=== PATIENT | male | born 1950 | race Caucasian/White ===

== ENCOUNTER → 2021-05-17 | Outpatient (CLI) | payer BC ==
[~2021-05-17] MED LIST: ASPI81TA26 PO; EPIP0.3I2 IM; EZET10TA21 PO; LORA-243 PO; MELO15TA28 PO; MONT10TA10 PO; OMEP1CAP73 PO; ROSU40TA4 PO; TRAZ-189 PO
== END ==
LOC: M LABSMTC 13:07
PROVIDERS: ATTEND Anesthesiology
DX: Z01.812 Encounter for preprocedural laboratory examination (principal); Z20.822 Contact with and (suspected) exposure to COVID-19

== ENCOUNTER 2021-05-22 08:00 | Day surgery (SDC) | payer OTHER ==
[~2021-05-22] VITALS: Ht 162.6 cm; Wt 66.2 kg
[~2021-05-22 08:00] MED LIST changes: +NS 1,000 ML IV ONE
[2021-05-22] MEDS ORDERED: propofoL 200 MG/20 ML VIAL As Ordered ONE ×2 (10:08→10:22)
[2021-05-22] MEDS ORDERED: LIDOCAINE 2% 100MG/5ML SDV (FOR ANES.) As Ordered ONE (10:08)
--- NOTE | 2021-05-22 10:40 | ROOR ---
Patient Name: Mundo Marsh Procedure Date: 05/22/2021 10:07 AM Date of : 1950 Age: 70 Room: [facility] Gender: Male Note Status: Finalized Procedure: Upper GI endoscopy Indications: Dysphagia Providers: Aurelio Montaño DO Referring MD: David Law MD Requesting Provider: Medicines: Propofol per Anesthesia Complications: No immediate complications. Procedure: Pre-Anesthesia Assessment: - Prior to the procedure, a History and Physical was performed, and patient medications and allergies were reviewed. The patient is competent. The risks and benefits of the procedure and the sedation options and risks were discussed with the patient. All questions were answered and informed consent was obtained. Patient identification and proposed procedure were verified by the physician, the nurse, the aerospace products sales engineer and the radiation protection technician in the endoscopy suite. Mental Status Examination: alert and oriented. Airway Examination: normal oropharyngeal airway and neck mobility. Respiratory Examination: clear to auscultation. CV Examination: normal. Prophylactic Antibiotics: The patient does not require prophylactic antibiotics. Prior Anticoagulants: The patient has taken no previous anticoagulant or antiplatelet agents. ASA Grade Assessment: II - A patient with mild systemic disease. After reviewing the risks and benefits, the patient was deemed in satisfactory condition to undergo the procedure. The anesthesia plan was to use monitored anesthesia care (MAC). Immediately prior to administration of medications, the patient was re-assessed for adequacy to receive sedatives. The heart rate, respiratory rate, oxygen saturations, blood pressure, adequacy of pulmonary ventilation, and response to care were monitored throughout the procedure. The physical status of the patient was re-assessed after the procedure. The Endoscope was introduced through the mouth, and advanced to the second part of duodenum. The upper GI endoscopy was accomplished without difficulty. The patient tolerated the procedure well. Findings: A small hiatal hernia was present. Localized minimal inflammation characterized by erythema was found in the prepyloric region of the stomach. Biopsies were taken with a cold forceps for Helicobacter pylori testing. Estimated blood loss was minimal. Impression: - Small hiatal hernia. - Gastritis. Biopsied. Recommendation: - Patient has a contact number available for emergencies. The signs and symptoms of potential delayed complications were discussed with the patient. Return to normal activities tomorrow. Written discharge instructions were provided to the patient. - Await pathology results. - Return to physician assistant therapy aide at appointment to be scheduled. Procedure Code(s): --- Professional --- 94400, Esophagogastroduodenoscopy, flexible, transoral; with biopsy, single or multiple Diagnosis Code(s): --- Professional --- K44.9, Diaphragmatic hernia without obstruction or gangrene R13.10, Dysphagia, unspecified K29.70, Gastritis, unspecified, without bleeding CPT copyright 2019 [employer]. All rights reserved. The codes documented in this report are preliminary and upon scale installer review may be revised to meet current compliance requirements. Aurelio Montaño DO 05/22/2021 10:39:46 AM Electronically signed by Aurelio Montaño DO Number of Addenda: 0 Note Initiated On: 05/22/2021 10:07 AM Estimated Blood Loss: Estimated blood loss was minimal.
--- NOTE | 2021-05-22 10:42 | ROOR ---
Patient Name: Mundo Marsh Procedure Date: 05/22/2021 10:07 AM Date of : 1950 Age: 70 Room: [facility] Gender: Male Note Status: Finalized Procedure: Colonoscopy Indications: Screening for colorectal malignant neoplasm Providers: DO Thelma Suh MD: David Law MD Requesting Provider: Medicines: Propofol per Anesthesia Complications: No immediate complications. Procedure: Pre-Anesthesia Assessment: - Prior to the procedure, a History and Physical was performed, and patient medications and allergies were reviewed. The patient is competent. The risks and benefits of the procedure and the sedation options and risks were discussed with the patient. All questions were answered and informed consent was obtained. Patient identification and proposed procedure were verified by the physician, the nurse, the covering machine tender and the material handling technician in the endoscopy suite. Mental Status Examination: alert and oriented. Airway Examination: normal oropharyngeal airway and neck mobility. Respiratory Examination: clear to auscultation. CV Examination: normal. Prophylactic Antibiotics: The patient does not require prophylactic antibiotics. Prior Anticoagulants: The patient has taken no previous anticoagulant or antiplatelet agents. ASA Grade Assessment: II - A patient with mild systemic disease. After reviewing the risks and benefits, the patient was deemed in satisfactory condition to undergo the procedure. The anesthesia plan was to use monitored anesthesia care (MAC). Immediately prior to administration of medications, the patient was re-assessed for adequacy to receive sedatives. The heart rate, respiratory rate, oxygen saturations, blood pressure, adequacy of pulmonary ventilation, and response to care were monitored throughout the procedure. The physical status of the patient was re-assessed after the procedure. The Colonoscope was introduced through the anus and advanced to the cecum, identified by appendiceal orifice and ileocecal valve. The colonoscopy was technically difficult and complex due to a tortuous colon. Findings: Non-bleeding internal hemorrhoids were found during retroflexion. The hemorrhoids were Grade I (internal hemorrhoids that do not prolapse). Multiple small and large-mouthed diverticula were found in the sigmoid colon and descending colon. The colon (entire examined portion) was grossly tortuous. Impression: - Non-bleeding internal hemorrhoids. - Diverticulosis in the sigmoid colon and in the descending colon. - Tortuous colon. - No specimens collected. Recommendation: - Patient has a contact number available for emergencies. The signs and symptoms of potential delayed complications were discussed with the patient. Return to normal activities tomorrow. Written discharge instructions were provided to the patient. - Repeat colonoscopy in 5-10 years for screening purposes. - Return to my office PRN. Procedure Code(s): --- Professional --- G0121, Colorectal cancer screening; colonoscopy on individual not meeting criteria for high risk Diagnosis Code(s): --- Professional --- Z12.11, Encounter for screening for malignant neoplasm of colon K64.0, First degree hemorrhoids K57.30, Diverticulosis of large intestine without perforation or abscess without bleeding Q43.8, Other specified congenital malformations of intestine CPT copyright 2019 [employer]. All rights reserved. The codes documented in this report are preliminary and upon dental assisting instructor review may be revised to meet current compliance requirements. Aurelio Montaño DO 05/22/2021 10:42:29 AM Electronically signed by Aurelio Montaño DO Number of Addenda: 0 Note Initiated On: 05/22/2021 10:07 AM Estimated Blood Loss: Estimated blood loss: none.
[2021-05-22 11:10] VITALS: BP 153/72
== END 2021-05-22 11:20 | disposition home or self-care (01) ==
LOC: M OPP 08:00
PROVIDERS: ATTEND Surgery
DX: Z12.11 Encounter for screening for malignant neoplasm of colon (principal); K64.0 First degree hemorrhoids; Q43.8 Other specified congenital malformations of intestine; K29.70 Gastritis, unspecified, without bleeding; K44.9 Diaphragmatic hernia without obstruction or gangrene; R13.10 Dysphagia, unspecified; Z79.82 Long term (current) use of aspirin; Z79.899 Other long term (current) drug therapy; Z91.013 Allergy to seafood; Z91.030 Bee allergy status

== ENCOUNTER 2023-03-26 18:07 | Inpatient (IN) | payer BC, MEDICARE, OTHER ==
[~2023-03-26] VITALS: Ht 162.6 cm; Wt 74.5 kg
[~2023-03-26 18:07] MED LIST changes: -MONT10TA10 PO; +MONT10TA97 PO; -NS 1,000 ML IV ONE
[2023-03-26] MEDS ORDERED: BOOSTRIX VACCINE (TETANUS/DIPHTH/ACEL. PERTUSSIS) 0.5ML SYR IM.IMMUN ONE (18:55)
[2023-03-26] MEDS ORDERED: MORPHINE 4 MG/ML 1ML VIAL IV ONE (18:55)
[2023-03-26 19:18] LABS: BASO # 0.1 10^3/uL (0.0-0.2); BASO % 0.3 % (0.0-1.0); EOS # 0.1 10^3/uL (0.0-0.5); EOS % 0.5 % (0.0-3.0); HEMOGLOBIN 15.3 g/dl (13.5-17.5); LYMPH # 1.2 10^3/uL (1.5-5.0); MEAN CORPUSCULAR HEMOGLOBIN 32.6 pg (27.0-33.0); MEAN CORPUSCULAR HGB CONC 34.8 g/dl (32.0-36.5); MEAN CORPUSCULAR VOLUME 93.6 fl (80.0-96.0); MONO % 6.5 % (2.0-8.0); NEUTROPHILS # 12.7 10^3/uL (1.5-8.5); NEUTROPHILS % 84.2 % (36.0-66.0); PLATELET COUNT, AUTOMATED 312 10^3/uL (150-450); WHITE BLOOD COUNT 15.1 10^3/uL (4.0-10.0)
[2023-03-26 19:38] LABS: INR 0.98; PROTHROMBIN TIME 13.2 SECONDS (12.5-14.5)
[2023-03-26 19:39] LABS: PARTIAL THROMBOPLASTIN TIME 28.6 SECONDS (24.8-34.2)
[2023-03-26 19:45] LABS: CK-MB VALUE MASS 11.9 NG/ML (<3.6)
[2023-03-26 19:47] LABS: ETHYL ALCOHOL (ETHANOL) < 0.003 % (0.000-0.010)
[2023-03-26 19:48] LABS: BLOOD UREA NITROGEN 16 MG/DL (9-23); CALCIUM LEVEL 8.9 MG/DL (8.3-10.6); CARBON DIOXIDE LEVEL 27 MMOL/L (20-31); CHLORIDE LEVEL 101 MMOL/L (98-107); CPK CREATINE PHOSPHOKINASE 791 U/L (46-171); CREATININE FOR GFR 0.91 MG/DL (0.70-1.30); GLOMERULAR FILTRATION RATE > 60.0 (>42); GLUCOSE, FASTING 143 MG/DL (74-106); POTASSIUM SERUM 4.1 MMOL/L (3.5-5.1); SODIUM LEVEL 138 MMOL/L (136-145)
[2023-03-26 19:49] LABS: THYROID STIMULATING HORMONE 2.924 uIU/ML (0.55-4.78)
[2023-03-26 19:57] LABS: RSV AMPLIFICATION NEGATIVE (NEGATIVE)
[2023-03-26] MEDS ORDERED: ISOVUE-370 76% 100ML VIAL As Ordered ONE (20:08)
[2023-03-26 20:56] LABS: MB/CK RELATIVE INDEX 1.4 (< OR =4)
[2023-03-26] MEDS ORDERED: OMEG10002 PO (23:26)
[2023-03-26] MEDS ORDERED: CALC200T3 PO (23:26)
[2023-03-26] MEDS ORDERED: TRAZ-189 PO (23:26)
[2023-03-26] MEDS ORDERED: VITMTA PO (23:26)
[2023-03-26] MEDS ORDERED: HOME MED LIST COMPLETE! XX SCH (23:30)
[2023-03-27] MEDS ORDERED: MORPHINE 4 MG/ML 1ML VIAL IV PRN (03:45)
[2023-03-27] MEDS ORDERED: EPINEPHrine INJ 1 MG/ML 1ML AMP INJ PRN (05:15)
[2023-03-27] MEDS ORDERED: EPINEPHrine INJ 1 MG/ML 1ML AMP IM PRN (05:21)
[2023-03-27 05:25] LABS: BASO % 0.2 % (0.0-1.0); HEMATOCRIT 41.2 % (42.0-52.0); HEMOGLOBIN 14.3 g/dl (13.5-17.5); LYMPH # 0.9 10^3/uL (1.5-5.0); LYMPH % 7.2 % (24.0-44.0); MEAN CORPUSCULAR HEMOGLOBIN 32.4 pg (27.0-33.0); MEAN CORPUSCULAR HGB CONC 34.7 g/dl (32.0-36.5); MEAN CORPUSCULAR VOLUME 93.4 fl (80.0-96.0); MONO # 1.1 10^3/uL (0.0-0.8); MONO % 8.7 % (2.0-8.0); NEUTROPHILS # 10.4 10^3/uL (1.5-8.5); NEUTROPHILS % 83.7 % (36.0-66.0); PLATELET COUNT, AUTOMATED 296 10^3/uL (150-450); RED BLOOD COUNT 4.41 10^6/uL (4.30-6.10); WHITE BLOOD COUNT 12.4 10^3/uL (4.0-10.0)
[2023-03-27] MEDS ORDERED: HEPARIN SOD (PORCINE) 5000UNITS/ML 1ML VIAL/SYRINGE SC SCH (06:00)
[2023-03-27 06:11] LABS: BLOOD UREA NITROGEN 18 MG/DL (9-23); CALCIUM LEVEL 8.2 MG/DL (8.3-10.6); CARBON DIOXIDE LEVEL 25 MMOL/L (20-31); CHLORIDE LEVEL 103 MMOL/L (98-107); CREATININE FOR GFR 0.73 MG/DL (0.70-1.30); GLOMERULAR FILTRATION RATE > 60.0 (>42); GLUCOSE, FASTING 133 MG/DL (74-106); POTASSIUM SERUM 3.9 MMOL/L (3.5-5.1); SODIUM LEVEL 138 MMOL/L (136-145)
[2023-03-27 07:29] LABS: HEMOGLOBIN A1c 5.9 % (4.0-6.0)
[2023-03-27] MEDS ORDERED: ASPIRIN 81MG ENTERIC TABLET PO SCH (09:00)
[2023-03-27] MEDS ORDERED: LOSARTAN 25 MG TAB PO SCH (09:00)
[2023-03-27] MEDS ORDERED: MORPHINE 2 MG/ML 1ML VIAL IV PRN (09:55)
[2023-03-27] MEDS: traZODone 100 MG TAB PO SCH ×2 (10:01→22:35)
[2023-03-27] MEDS: OMEPRAZOLE 20MG CAP PO SCH ×2 (10:02→22:35)
[2023-03-27] MEDS: MULTIVITAMINS/MINERALS THERAP 1 TAB PO SCH (10:02)
[2023-03-27] MEDS: EZETIMIBE 10MG TABLET (ZETIA) PO SCH (10:02)
[2023-03-27] MEDS: OMEGA-3 1000MG CAPSULE PO SCH ×2 (10:02→22:35)
[2023-03-27] MEDS: PERCOCET 5MG/325MG TAB PO PRN (10:47)
[2023-03-27 12:00] VITALS: BP_SYST 141; BP_SYST 150; BP_SYST 161; BP_DIAS 80; BP_DIAS 82; BP_DIAS 88
[2023-03-27] MEDS ORDERED: NS 1,000 ML IV SCH (13:00)
[2023-03-27] MEDS: ALBUTEROL SULFATE 2.5MG/0.5ML INH NEB SOLN NEB SCH ×2 (13:58→19:36)
[2023-03-27] MEDS: LR 1,000 ML IV SCH (15:00)
[2023-03-27 16:18] VITALS: BP 130/74
[2023-03-27 16:50] VITALS: BP 160/76
[2023-03-27 17:00] VITALS: O2SAT 94
[2023-03-27] MEDS ORDERED: hydrALAZINE 20MG/ML 1ML VIAL IV PRN (17:25)
[2023-03-27 20:33] VITALS: BP 142/76
[2023-03-27] MEDS: ROSUVASTATIN 10 MG TAB (CRESTOR) PO SCH (22:34)
[2023-03-27] MEDS: LORATADINE 10 MG TAB PO SCH (22:35)
[2023-03-27] MEDS: MONTELUKAST 10 MG TAB PO SCH (22:36)
[2023-03-28] VITALS (18 sets, daily range): BP systolic 112–152; BP diastolic 60–79; O2SAT 91–95
[2023-03-28] MEDS: ALBUTEROL SULFATE 2.5MG/0.5ML INH NEB SOLN NEB SCH ×4 (01:23→20:03)
[2023-03-28 07:39] LABS: BASO % 0.2 % (0.0-1.0); EOS # 0.1 10^3/uL (0.0-0.5); EOS % 0.5 % (0.0-3.0); HEMATOCRIT 35.1 % (42.0-52.0); HEMOGLOBIN 12.4 g/dl (13.5-17.5); LYMPH # 1.1 10^3/uL (1.5-5.0); LYMPH % 10.6 % (24.0-44.0); MEAN CORPUSCULAR HEMOGLOBIN 33.3 pg (27.0-33.0); MEAN CORPUSCULAR HGB CONC 35.3 g/dl (32.0-36.5); MEAN CORPUSCULAR VOLUME 94.4 fl (80.0-96.0); MONO # 1.2 10^3/uL (0.0-0.8); MONO % 12.3 % (2.0-8.0); NEUTROPHILS # 7.5 10^3/uL (1.5-8.5); PLATELET COUNT, AUTOMATED 257 10^3/uL (150-450); RED BLOOD COUNT 3.72 10^6/uL (4.30-6.10); WHITE BLOOD COUNT 9.9 10^3/uL (4.0-10.0)
[2023-03-28] MEDS: LR 1,000 ML IV SCH (07:40)
[2023-03-28 07:51] LABS: BLOOD UREA NITROGEN 16 MG/DL (9-23); CALCIUM LEVEL 8.2 MG/DL (8.3-10.6); CARBON DIOXIDE LEVEL 27 MMOL/L (20-31); CHLORIDE LEVEL 103 MMOL/L (98-107); CREATININE FOR GFR 0.73 MG/DL (0.70-1.30); GLOMERULAR FILTRATION RATE > 60.0 (>42); GLUCOSE, FASTING 127 MG/DL (74-106); POTASSIUM SERUM 3.8 MMOL/L (3.5-5.1); SODIUM LEVEL 139 MMOL/L (136-145)
[2023-03-28] MEDS ORDERED: ceFAZolin SOD 2 GM in IV 1 EA IV ONE (08:30)
[2023-03-28] MEDS: MULTIVITAMINS/MINERALS THERAP 1 TAB PO SCH (08:52)
[2023-03-28] MEDS: OMEGA-3 1000MG CAPSULE PO SCH ×2 (08:52→21:27)
[2023-03-28] MEDS: OMEPRAZOLE 20MG CAP PO SCH ×2 (08:52→21:27)
[2023-03-28] MEDS ORDERED: propofoL 200 MG/20 ML VIAL As Ordered ONE (10:40)
[2023-03-28] MEDS ORDERED: LIDOCAINE 2% 100MG/5ML SDV (FOR ANES.) As Ordered ONE (10:40)
[2023-03-28] MEDS ORDERED: fentaNYL 100 MCG/2 ML INJECTION As Ordered ONE (10:40)
[2023-03-28] MEDS ORDERED: MIDAZOLAM INJ 2MG/2ML VIAL As Ordered ONE (10:40)
[2023-03-28] MEDS ORDERED: LIDOCAINE 1% SDV 30ML VIAL As Ordered ONE (10:58)
[2023-03-28] MEDS ORDERED: fentaNYL 100 MCG/2 ML INJECTION IV PRN (12:20)
[2023-03-28] MEDS ORDERED: MORPHINE 2 MG/ML 1ML VIAL IV PRN (12:20)
[2023-03-28] MEDS ORDERED: oxyCODONE 5MG TAB PO PRN (12:20)
[2023-03-28] MEDS ORDERED: ONDANSETRON 4MG 2ML VIAL IV PRN (12:20)
[2023-03-28] MEDS: traZODone 100 MG TAB PO SCH ×2 (13:32→21:27)
[2023-03-28] MEDS: EZETIMIBE 10MG TABLET (ZETIA) PO SCH (13:32)
[2023-03-28] MEDS: LOSARTAN 50MG TABLET PO SCH ×2 (13:32→21:28)
[2023-03-28] MEDS: PERCOCET 5MG/325MG TAB PO PRN ×2 (14:50→19:14)
[2023-03-28] MEDS: ceFAZolin SOD 1 GM in D5W MINI-BAG PLUS 50 ML IV SCH (19:13)
[2023-03-28] MEDS: ROSUVASTATIN 10 MG TAB (CRESTOR) PO SCH (21:27)
[2023-03-28] MEDS: LORATADINE 10 MG TAB PO SCH (21:27)
[2023-03-28] MEDS: MONTELUKAST 10 MG TAB PO SCH (21:27)
[2023-03-29] VITALS (9 sets, daily range): BP systolic 103–135; BP diastolic 59–78; O2SAT 91–92
[2023-03-29] MEDS: ALBUTEROL SULFATE 2.5MG/0.5ML INH NEB SOLN NEB SCH ×3 (01:09→13:31)
[2023-03-29] MEDS: ceFAZolin SOD 1 GM in D5W MINI-BAG PLUS 50 ML IV SCH ×2 (04:03→11:35)
[2023-03-29 06:50] LABS: BASO % 0.3 % (0.0-1.0); EOS % 0.2 % (0.0-3.0); HEMATOCRIT 33.8 % (42.0-52.0); HEMOGLOBIN 11.6 g/dl (13.5-17.5); LYMPH # 1.3 10^3/uL (1.5-5.0); LYMPH % 12.8 % (24.0-44.0); MEAN CORPUSCULAR HEMOGLOBIN 32.8 pg (27.0-33.0); MEAN CORPUSCULAR HGB CONC 34.3 g/dl (32.0-36.5); MEAN CORPUSCULAR VOLUME 95.5 fl (80.0-96.0); MONO # 1.5 10^3/uL (0.0-0.8); MONO % 14.4 % (2.0-8.0); NEUTROPHILS # 7.3 10^3/uL (1.5-8.5); NEUTROPHILS % 71.9 % (36.0-66.0); PLATELET COUNT, AUTOMATED 238 10^3/uL (150-450); RED BLOOD COUNT 3.54 10^6/uL (4.30-6.10); WHITE BLOOD COUNT 10.2 10^3/uL (4.0-10.0)
[2023-03-29 07:20] LABS: BLOOD UREA NITROGEN 16 MG/DL (9-23); CALCIUM LEVEL 8.4 MG/DL (8.3-10.6); CARBON DIOXIDE LEVEL 27 MMOL/L (20-31); CHLORIDE LEVEL 101 MMOL/L (98-107); CREATININE FOR GFR 0.74 MG/DL (0.70-1.30); GLOMERULAR FILTRATION RATE > 60.0 (>42); GLUCOSE, FASTING 133 MG/DL (74-106); POTASSIUM SERUM 3.7 MMOL/L (3.5-5.1); SODIUM LEVEL 136 MMOL/L (136-145)
[2023-03-29] MEDS: OMEPRAZOLE 20MG CAP PO SCH (08:28)
[2023-03-29] MEDS: traZODone 100 MG TAB PO SCH (08:28)
[2023-03-29] MEDS: OMEGA-3 1000MG CAPSULE PO SCH (08:28)
[2023-03-29] MEDS: MULTIVITAMINS/MINERALS THERAP 1 TAB PO SCH (08:28)
[2023-03-29] MEDS: EZETIMIBE 10MG TABLET (ZETIA) PO SCH (08:29)
[2023-03-29] MEDS: LOSARTAN 50MG TABLET PO SCH (08:29)
[2023-03-29] MEDS: PERCOCET 5MG/325MG TAB PO PRN ×2 (08:30→12:49)
[2023-03-29] MEDS ORDERED: PERCOCET PO (14:36)
[2023-03-29] MEDS ORDERED: LOSA50TA28 PO (14:36)
== END 2023-03-29 16:19 | disposition home or self-care (01) | DRG 243 ==
LOC: M ED 18:07 → M ED INP 03-27 02:04 → ENRESERV 03-27 14:32 → M PCU 03-27 16:50
PROVIDERS: ADMIT Internal Medicine; ATTEND Internal Medicine
PROC: B246ZZZ Ultrasonography of Right and Left Heart (ICD-10-PCS; 2023-03-27)
PROC: 2W3BXYZ Immobilization of Left Upper Arm using Other Device (ICD-10-PCS; 2023-03-27)
PROC: 02H63JZ Insertion of Pacemaker Lead into Right Atrium, Percutaneous Approach (ICD-10-PCS; 2023-03-28)
PROC: 02HK3JZ Insertion of Pacemaker Lead into Right Ventricle, Percutaneous Approach (ICD-10-PCS; 2023-03-28)
PROC: 0JH606Z Insertion of Pacemaker, Dual Chamber into Chest Subcutaneous Tissue and Fascia, Open Approach (ICD-10-PCS; principal; 2023-03-28 10:00)
DX: I45.3 Trifascicular block (principal); S27.0XXA Traumatic pneumothorax, initial encounter; J90 Pleural effusion, not elsewhere classified; S27.321A Contusion of lung, unilateral, initial encounter; S22.42XA Multiple fractures of ribs, left side, initial encounter for closed fracture; I45.10 Unspecified right bundle-branch block; I44.0 Atrioventricular block, first degree; E11.9 Type 2 diabetes mellitus without complications; E78.5 Hyperlipidemia, unspecified; I11.9 Hypertensive heart disease without heart failure; M19.90 Unspecified osteoarthritis, unspecified site; G47.00 Insomnia, unspecified; K21.9 Gastro-esophageal reflux disease without esophagitis; M51.36 Other intervertebral disc degeneration, lumbar region; F32.A Depression, unspecified; S42.022A Displaced fracture of shaft of left clavicle, initial encounter for closed fracture; S50.02XA Contusion of left elbow, initial encounter; K44.9 Diaphragmatic hernia without obstruction or gangrene; I25.10 Atherosclerotic heart disease of native coronary artery without angina pectoris; Z79.82 Long term (current) use of aspirin; Z79.899 Other long term (current) drug therapy; Z91.013 Allergy to seafood; Z91.030 Bee allergy status; V18.0XXA Pedal cycle driver injured in noncollision transport accident in nontraffic accident, initial encounter; Z20.822 Contact with and (suspected) exposure to COVID-19; Z90.49 Acquired absence of other specified parts of digestive tract; Z90.79 Acquired absence of other genital organ(s); Z85.46 Personal history of malignant neoplasm of prostate

== ENCOUNTER 2023-04-04 11:17 | Emergency (ER) | payer OTHER ==
[~2023-04-04] VITALS: Ht 162.6 cm; Wt 68.2 kg
[~2023-04-04 11:17] MED LIST changes: +CALC200T3 PO; +LOSA50TA28 PO; +OMEG10002 PO; +PERCOCET PO; +VITMTA PO
[2023-04-04] MEDS ORDERED: PERCOCET 5MG/325MG TAB PO ONE (12:50)
[2023-04-04 12:53] LABS: BASO % 0.2 % (0.0-1.0); EOS # 0.1 10^3/uL (0.0-0.5); EOS % 0.9 % (0.0-3.0); HEMATOCRIT 35.6 % (42.0-52.0); HEMOGLOBIN 12.2 g/dl (13.5-17.5); LYMPH # 1.1 10^3/uL (1.5-5.0); MEAN CORPUSCULAR HEMOGLOBIN 33.1 pg (27.0-33.0); MEAN CORPUSCULAR HGB CONC 34.3 g/dl (32.0-36.5); MEAN CORPUSCULAR VOLUME 96.5 fl (80.0-96.0); MONO % 12.9 % (2.0-8.0); NEUTROPHILS # 9.5 10^3/uL (1.5-8.5); NEUTROPHILS % 76.6 % (36.0-66.0); PLATELET COUNT, AUTOMATED 395 10^3/uL (150-450); RED BLOOD COUNT 3.69 10^6/uL (4.30-6.10); WHITE BLOOD COUNT 12.4 10^3/uL (4.0-10.0)
[2023-04-04 13:03] LABS: INR 0.99; PROTHROMBIN TIME 13.3 SECONDS (12.5-14.5)
[2023-04-04 13:04] LABS: PARTIAL THROMBOPLASTIN TIME 30.9 SECONDS (24.8-34.2)
[2023-04-04 13:20] LABS: BLOOD UREA NITROGEN 16 MG/DL (9-23); CALCIUM LEVEL 9.1 MG/DL (8.3-10.6); CARBON DIOXIDE LEVEL 30 MMOL/L (20-31); CHLORIDE LEVEL 100 MMOL/L (98-107); CREATININE FOR GFR 0.75 MG/DL (0.70-1.30); GLOMERULAR FILTRATION RATE > 60.0 (>42); GLUCOSE, FASTING 143 MG/DL (74-106); POTASSIUM SERUM 4.2 MMOL/L (3.5-5.1); SODIUM LEVEL 135 MMOL/L (136-145)
[2023-04-04 13:27] LABS: MONO # 1.6 10^3/uL (0.0-0.8)
[2023-04-04 13:45] VITALS: BP 147/89
[2023-04-04] MEDS ORDERED: PERC5TAB12 PO (13:53)
== END 2023-04-04 14:12 | disposition home or self-care (01) ==
LOC: M ED 11:17
DX: S80.11XA Contusion of right lower leg, initial encounter (principal); Y93.55 Activity, bike riding; E11.9 Type 2 diabetes mellitus without complications; E78.5 Hyperlipidemia, unspecified; I10 Essential (primary) hypertension; K21.9 Gastro-esophageal reflux disease without esophagitis; M19.90 Unspecified osteoarthritis, unspecified site; F41.9 Anxiety disorder, unspecified; F32.9 Major depressive disorder, single episode, unspecified; Z79.82 Long term (current) use of aspirin; Z79.899 Other long term (current) drug therapy; Z91.013 Allergy to seafood; Z91.030 Bee allergy status

== ENCOUNTER 2023-06-17 07:22 | Day surgery (SDC) | payer OTHER ==
[~2023-06-17] VITALS: Ht 162.6 cm; Wt 69.9 kg
[~2023-06-17 07:22] MED LIST changes: +ASPI1TAB8 PO; +ATEN25TA PO; +ELIQ5TAB PO; +OMEP-173 PO; +PERC5TAB12 PO; +ceFAZolin SOD 2 GM in IV 1 EA IV ONE
[2023-06-17] MEDS ORDERED: LR 1,000 ML IV SCH (08:10)
[2023-06-17] MEDS ORDERED: fentaNYL 100 MCG/2 ML INJECTION As Ordered ONE (08:25)
[2023-06-17] MEDS ORDERED: MIDAZOLAM INJ 2MG/2ML VIAL As Ordered ONE (08:25)
[2023-06-17] MEDS ORDERED: LIDOCAINE 2% 100MG/5ML SDV (FOR ANES.) As Ordered ONE (08:26)
[2023-06-17] MEDS ORDERED: propofoL 200 MG/20 ML VIAL As Ordered ONE (08:26)
[2023-06-17] MEDS ORDERED: ONDANSETRON 4MG 2ML VIAL As Ordered ONE (08:32)
[2023-06-17] MEDS ORDERED: LIDOCAINE 1% SDV 30ML VIAL As Ordered ONE (08:50)
[2023-06-17] MEDS ORDERED: ACETAMINOPHEN 1000MG 100ML IV BAG As Ordered ONE (09:34)
[2023-06-17 10:18] VITALS: BP 128/79; TEMP 97.4; O2SAT 98
== END 2023-06-17 10:22 | disposition home or self-care (01) ==
LOC: M SDC 07:22
PROVIDERS: ATTEND Podiatrist Foot & Ankle Surgery
DX: M20.41 Other hammer toe(s) (acquired), right foot (principal); E78.5 Hyperlipidemia, unspecified; A00-B99 Certain infectious and parasitic diseases; F41.9 Anxiety disorder, unspecified; F32.A Depression, unspecified; K21.9 Gastro-esophageal reflux disease without esophagitis; Z79.01 Long term (current) use of anticoagulants; Z79.899 Other long term (current) drug therapy; E11.9 Type 2 diabetes mellitus without complications; Z95.0 Presence of cardiac pacemaker; Z91.030 Bee allergy status; Z91.013 Allergy to seafood
CPT/HCPCS: 28820; 88300; J0131; J0665; J0690; J2250; J2405; J3010

== ENCOUNTER 2024-01-26 04:32 | Emergency (ER) | payer OTHER ==
[~2024-01-26] VITALS: Ht 172.7 cm; Wt 79.5 kg
[~2024-01-26 04:32] MED LIST changes: -ceFAZolin SOD 2 GM in IV 1 EA IV ONE
[2024-01-26 05:01] LABS: BASO # 0.1 10^3/uL (0.0-0.2); BASO % 0.3 % (0.0-1.0); EOS # 0.2 10^3/uL (0.0-0.5); EOS % 1.3 % (0.0-3.0); HEMATOCRIT 41.4 % (42.0-52.0); LYMPH # 1.2 10^3/uL (1.5-5.0); LYMPH % 7.6 % (24.0-44.0); MEAN CORPUSCULAR HEMOGLOBIN 33.9 pg (27.0-33.0); MEAN CORPUSCULAR HGB CONC 36.2 g/dl (32.0-36.5); MEAN CORPUSCULAR VOLUME 93.7 fl (80.0-96.0); MONO # 1.3 10^3/uL (0.0-0.8); MONO % 7.9 % (2.0-8.0); NEUTROPHILS # 13.5 10^3/uL (1.5-8.5); NEUTROPHILS % 82.5 % (36.0-66.0); RED BLOOD COUNT 4.42 10^6/uL (4.30-6.10); WHITE BLOOD COUNT 16.4 10^3/uL (4.0-10.0)
[2024-01-26 05:14] LABS: INR 1.11; PARTIAL THROMBOPLASTIN TIME 21.5 SECONDS (24.8-34.2)
[2024-01-26 05:41] LABS: PLATELET COUNT, AUTOMATED 331 10^3/uL (150-450)
[2024-01-26 06:21] LABS: CK-MB VALUE MASS 4.8 NG/ML (<3.6)
[2024-01-26 06:24] LABS: ALBUMIN 3.5 G/DL (3.2-5.2); ALKALINE PHOSPHATASE 65 U/L (46-116); ALT/SGPT 40 U/L (7.0-40); AST/SGOT 28 U/L (<34); BILIRUBIN,DIRECT < 0.1 MG/DL (<0.4); BILIRUBIN,TOTAL 0.3 MG/DL (0.3-1.2); BLOOD UREA NITROGEN 18 MG/DL (9-23); CALCIUM LEVEL 8.3 MG/DL (8.3-10.6); CARBON DIOXIDE LEVEL 27 MMOL/L (20-31); CHLORIDE LEVEL 105 MMOL/L (98-107); CREATININE FOR GFR 0.72 MG/DL (0.70-1.30); GLOMERULAR FILTRATION RATE > 60.0 (>42); GLUCOSE, FASTING 126 MG/DL (74-106); POTASSIUM SERUM 4.2 MMOL/L (3.5-5.1); SODIUM LEVEL 138 MMOL/L (136-145); TOTAL PROTEIN 6.2 G/DL (5.7-8.2)
[2024-01-26 06:26] LABS: THYROID STIMULATING HORMONE 1.837 uIU/ML (0.55-4.78)
[2024-01-26 06:27] LABS: CPK CREATINE PHOSPHOKINASE 192 U/L (46-171)
[2024-01-26 06:34] LABS: RSV AMPLIFICATION NEGATIVE (NEGATIVE)
[2024-01-26 07:45] LABS: CK-MB VALUE MASS 4.2 NG/ML (<3.6); MB/CK RELATIVE INDEX 2.29 (< OR =4)
[2024-01-26] MEDS ORDERED: CARA1TAB6 PO (08:40)
[2024-01-26 08:54] VITALS: BP 154/99; TEMP 97.7; O2SAT 95
== END 2024-01-26 09:02 | disposition home or self-care (01) ==
LOC: M ED 04:32
DX: R07.9 Chest pain, unspecified (principal); K21.00 Gastro-esophageal reflux disease with esophagitis, without bleeding; I45.10 Unspecified right bundle-branch block; I44.4 Left anterior fascicular block; I45.2 Bifascicular block; E11.9 Type 2 diabetes mellitus without complications; E78.5 Hyperlipidemia, unspecified; K21.9 Gastro-esophageal reflux disease without esophagitis; Z95.0 Presence of cardiac pacemaker; Z91.013 Allergy to seafood; Z91.030 Bee allergy status; Z79.01 Long term (current) use of anticoagulants; Z79.83 Long term (current) use of bisphosphonates; Z79.899 Other long term (current) drug therapy; Z79.811 Long term (current) use of aromatase inhibitors

== ENCOUNTER → 2025-01-25 | Outpatient (CLI) | payer MEDICARE, OTHER ==
[~2025-01-25] MED LIST changes: +CARA1TAB6 PO; -ROSU40TA4 PO; +ROSU40TA81 PO
== END ==
LOC: M RAD 12:15
PROVIDERS: ATTEND Internal Medicine
DX: M47.26 Other spondylosis with radiculopathy, lumbar region (principal)

== ENCOUNTER → 2025-03-21 | Outpatient (CLI) | payer OTHER | LOC: M PLAIMG 12:09 | PROVIDERS: ATTEND Internal Medicine | DX: M54.50 Low back pain, unspecified (principal); M47.816 Spondylosis without myelopathy or radiculopathy, lumbar region; M48.061 Spinal stenosis, lumbar region without neurogenic claudication; N28.1 Cyst of kidney, acquired ==

== ENCOUNTER → 2025-06-29 | Outpatient (CLI) | payer OTHER | LOC: M CARPUL 14:38 | PROVIDERS: ATTEND Registered Nurse | DX: I35.9 Nonrheumatic aortic valve disorder, unspecified (principal); I77.810 Thoracic aortic ectasia ==

== ENCOUNTER → 2025-10-27 | Outpatient (REF) | payer OTHER ==
[~2025-10-27] MED LIST changes: -EZET10TA21 PO; +EZET10TA57 PO
== END ==
LOC: M SFHCDERM 17:27
PROVIDERS: ATTEND Nurse Practitioner Family
DX: D04.9 Carcinoma in situ of skin, unspecified (principal); L57.0 Actinic keratosis